=== PATIENT | female | born 1995 | race Two or more races ===

== ENCOUNTER 2017-12-06 21:54 | Emergency (ER) | payer OTHER ==
[~2017-12-06] VITALS: Ht 175.3 cm; Wt 77.1 kg
[~2017-12-06 21:54] MED LIST: RISPERDAL1 MG
== END 2017-12-07 07:24 | disposition home or self-care (01) ==
LOC: ER 21:54
DX: T42.4X2A Poisoning by benzodiazepines, intentional self-harm, initial encounter (principal); Y92.89 Other specified places as the place of occurrence of the external cause

== ENCOUNTER 2017-12-16 16:19 | Emergency (ER) | payer OTHER ==
[~2017-12-16] VITALS: Ht 172.7 cm; Wt 81.6 kg
== END 2017-12-16 18:57 | disposition home or self-care (01) ==
LOC: ER 16:19
DX: S93.491A Sprain of other ligament of right ankle, initial encounter (principal); X50.3XXA Overexertion from repetitive movements, initial encounter; Y93.89 Activity, other specified; Y92.89 Other specified places as the place of occurrence of the external cause; Y99.8 Other external cause status